=== PATIENT | male | born 1990 | race Caucasian/White ===

== ENCOUNTER → 2019-07-08 | Outpatient (CLI) | payer OTHER ==
[2019-07-08 08:44] VITALS: BP 140/89
== END ==
LOC: OD 08:17 → EDSTATUS 07-21 07:30
PROVIDERS: ATTEND Surgery
DX: Z53.9 Procedure and treatment not carried out, unspecified reason (principal)

== ENCOUNTER 2019-09-13 07:34 | Day surgery (SDC) | payer OTHER ==
[~2019-09-13 07:34] MED LIST: CEFAZOLIN 1 GM/D5W RTU 1 GM/50 ML RTUPB IV ONE; CEFAZOLIN 1 GM/D5W RTU 1 GM/50 ML RTUPB IV PRN; FENTANYL CITRATE INJ/PF 100 MCG/2 ML AMPUL ONE; KETAMINE HCL INJ 500 MG/10 ML VIAL ONE; LACTATED RINGERS 1000 ML IV PRN; LIDOCAINE 0.5% INJ-PF (5 MG/ML) 50 ML SDV SUBCUT PRN; MIDAZOLAM 2 MG/2 ML INJ ONE; PROPOFOL INJ 200 MG/20 ML VIAL IV ONE
[2019-09-13] MEDS ORDERED: ONDANSETRON HCL INJ/PF 4 MG/2 ML SDV ONE (09:10)
[2019-09-13] MEDS ORDERED: BUPIVACAINE HCL 0.5%-EPI 1:200000 INJ/PF 30 ML VIAL ONE (09:11)
[2019-09-13] MEDS ORDERED: DIPHENHYDRAMINE HCL 50 MG/ML VIAL IV PRN (09:25)
[2019-09-13] MEDS ORDERED: FENTANYL CITRATE INJ/PF 100 MCG/2 ML AMPUL IV PRN ×3 (09:25)
[2019-09-13] MEDS ORDERED: PROMETHAZINE HCL INJ 25 MG/1 ML VIAL IV PRN (09:25)
[2019-09-13] MEDS ORDERED: MORPHINE SULFATE 10 MG/ML INJ IV PRN (09:25)
[2019-09-13] MEDS ORDERED: MEPERIDINE HCL/PF INJ 25 MG/1 ML DISP.SYRIN IV PRN (09:25)
[2019-09-13] MEDS ORDERED: FENTANYL CITRATE INJ/PF 100 MCG/2 ML AMPUL ONE (09:43)
--- NOTE | 2019-09-13 10:16 | Operative Report ---
Nonrecallable Operative Report DATE OF SURGERY: 09/13/19 PREOPERATIVE DIAGNOSIS: back lipoma POSTOPERATIVE DIAGNOSIS: back lipoma OPERATION: excision of back lipoma SURGEON: HUMBERTO HURT GAS ANALYST: ANMOL ASLCIDO ANESTHESIA: LMAC TISSUE REMOVED OR ALTERED: back mass COMPLICATIONS: none ESTIMATED BLOOD LOSS: 25cc INTRAOPERATIVE FINDINGS: 6cm diameter back mass PROCEDURE: Patient was brought to the operating awake alert stable condition and given IV sedation. He was placed on the operating table in a prone position. The upper back mass which was just to the right of midline was prepped and draped in usual sterile fashion. After appropriate timeout site verification the procedure commenced. Using a transverse incision we anesthetized first the skin underneath the incision with 1% lidocaine with epinephrine. Then a transverse incision about 8 cm long was made directly over the mass dissection was carried out through the deep subcutaneous tissue with Bovie cautery until reaching the lipomatous mass. Superior and inferior skin flaps were raised with the Bovie cautery. The mass was then dissected off the trapezius muscles with sharp dissection using Bovie cautery. It was removed in total. After removal of the mass hemostasis was obtained with Bovie cautery the wound was irrigated normal saline deep subcutaneous tissue was reapproximated with interrupted 2-0 Vicryl skin was reapproximated interrupted 2-0 nylon sterile dressing was applied with compression at the termination the procedure. Estimated blood loss was 25 cc sponge needle counts were correct x2 patient was then returned to recovery in stable condition POWER Adam was present for the entire procedure for help with wound retraction and wound closure
--- NOTE | 2019-09-13 10:20 | Discharge Summary ---
Discharge Summary (SDC) - Discharge Final Diagnosis: Back mass Date of Surgery: 09/13/19 Discharge Date: 09/13/19 Condition: Good Prescriptions: Hydrocodone/Acetaminophen [[place] 10-325 mg Tablet] 1 tab PO Q6HP PRN #20 tablet PRN Reason: Referrals: [facility] [[facility] - Discharge Diet: As Tolerated Discharge Activity: No Lifting Over 10 Pounds
[2019-09-13 12:48] VITALS: BP 135/89
== END 2019-09-13 11:50 | disposition home or self-care (01) ==
LOC: OROUT 07:34
PROVIDERS: ATTEND Surgery
DX: D17.1 Benign lipomatous neoplasm of skin and subcutaneous tissue of trunk (principal); K21.9 Gastro-esophageal reflux disease without esophagitis; Z79.899 Other long term (current) drug therapy; Z03.818 Encounter for observation for suspected exposure to other biological agents ruled out
CPT/HCPCS: 87635; 88304 ×2; 21931; J2250; J3490 ×2; J0690; J3010; J2405; J2704